=== PATIENT | female | born 1935 | race Caucasian/White ===

== ENCOUNTER → 2021-08-18 09:36 | Outpatient (CLI) | payer MEDICARE, OTHER, SELFPAY ==
--- NOTE | 2021-08-18 | DI.MG.S_ITS ---
BILATERAL DIGITAL SCREENING MAMMOGRAM 3D/2D WITH CAD: 08/18/2021 CLINICAL: Routine screening. Family history of breast cancer. Comparison is made to exams dated: 02/09/2019 mammogram, 02/08/2018 mammogram, and 12/15/2016 mammogram - outside location. The tissue of both breasts is predominantly fatty. Current study was also evaluated with a Computer Aided Detection (CAD) system. No significant masses, calcifications, or other findings are seen in either breast. There has been no significant interval change. IMPRESSION: NEGATIVE There is no mammographic evidence of malignancy. A 1 year screening mammogram is recommended. This exam was interpreted at Station ID: [id number]. NOTE: For mammograms, a report in lay terms will be sent to the patient. Approximately 15% of breast malignancies will not be visualized mammographically. In the management of a palpable breast mass, a negative mammogram must not discourage biopsy of a clinically suspicious lesion. Electronically Signed By: Gen [email or web address]:08/18/2021 11:47:47 letter sent: Normal Exam ACR BI-RADS Category 1: Negative [id number]
== END ==
PROVIDERS: Family Provider Family Medicine; PCP Internal Medicine; Referring Provider Internal Medicine; Visit Provider Internal Medicine
DX: Z12.31 Encounter for screening mammogram for malignant neoplasm of breast (principal); Z80.3 Family history of malignant neoplasm of breast
CPT/HCPCS: 77063; 77067

== ENCOUNTER 2021-12-16 15:26 | Emergency (ER) | payer MEDICARE, OTHER, SELFPAY ==
[2021-12-16 15:31] VITALS: BP 195/88; PULSE 72; RESP 18; TEMP 36.5; O2SAT 100
--- NOTE | 2021-12-16 18:47 | ED.RECABL ---
HPI - Recheck/Abnormal Lab/Rx General Chief Complaint: Recheck/Abnormal Lab/Rx Stated Complaint: abnormal labs this am Time Seen by Provider: 12/16/21 18:15 Source: patient Mode of arrival: Ambulatory History of Present Illness HPI narrative: Patient is an 86-year-old female who received a call from her primary doctor's office informing her that she should come to the emergency department. Patient states she woke up today with symptoms that she thought were consistent with prior urinary tract infections. She had burning with urination. She contacted her doctor's office. She had labs and a urinalysis performed as an outpatient. She did not see her provider. Was not started on antibiotics. Apparently these resulted in she received a call telling her to come to the emergency department because she had blood in her urine. She states that the symptoms that she had this morning that made her concerned about infection have resolved. She is currently asymptomatic. Related Data Allergies Allergy/AdvReac Type Severity Reaction Status Date / Time zolpidem [From AMBIEN] Allergy Severe SUICIDAL Unverified 01/26/18 12:45 diazepam [From VALIUM] Allergy Mild Unverified 01/26/18 12:45 ibuprofen [From MOTRIN] Allergy Mild STOMACH Unverified 01/26/18 12:45 PAIN AFTER HIGH DOSES Review of Systems Constitutional Constitutional: Denies fever(s) Gastrointestinal Gastrointestinal: Denies abdominal pain Genitourinary Genitourinary: Reports system reviewed and no additional complaints, except as documented and Reports as per HPI Integumentary/Breasts Skin/Breast: Reports system reviewed and no additional complaints, except as documented Hematologic/Lymphatic On Anticoagulants: No Patient History Social History lives independently: Yes Exam Initial Vital Signs Initial Vital Signs: Vital Signs Temperature 97.7 F 12/16/21 15:31 Pulse Rate 72 12/16/21 15:31 Respiratory Rate 18 12/16/21 15:31 Blood Pressure 195/88 H 12/16/21 15:31 Pulse Oximetry 100 12/16/21 15:31 Const General: cooperative, comfortable and well developed HENMT Head: normal to inspection and normocephalic Resp Effort & Inspection: normal respiratory effort Cardio Rate: regular rate GI Inspection: normal to inspection Neuro General: patient alert, patient awake and moves all extremities Extrem General: normal to inspection Psych Appearance: grossly normal Course Orders Ordered: ED Orders 12/16/21 18:57 Urine Culture Stat Urine Microscopic Stat Vital Signs Vital signs: Vital Signs - 8 hr 12/16/21 18:59 Blood Pressure 175/80 H MDM - Recheck/Abnormal Lab/Rx Lab Data Labs: Lab Results 12/16/21 Range/Units 18:57 Urine RBC 10-30/hpf H (0-5/HPF) Urine WBC 10-30/hpf H (0-5/HPF) Ur Squamous Epith Cells 0-1 /hpf (0-5/HPF) Ur Transition Epith Cell 0-1/hpf (0-5/HPF) Ur Renal Epithelial Cell 0-1/hpf (0-1/HPF) Urine Bacteria Few (2-10) H (None) Urine Mucus 1+ H (Negative) Ur Culture Indicated? Specimen cultured Micro UA Comment Note Urine Dip Bedside Urine Glucose Negative Bedside Urine Bilirubin - Negative Bedside Urine Ketone - Negative Urine Specific [place] 1.015 Bedside Urine Occult Blood - Negative Bedside Urine pH 6.5 Bedside Urine Protein - Negative Bedside Urine Urobilinogen - Negative Bedside Urine Nitrite - Negative Bedside Urine Leukocytes - Negative Esterase [facility] Narrative Medical decision making narrative: Patient's vital signs are unremarkable. She has a benign exam. Her point of care urinalysis today is unremarkable. We were able to receive labs from earlier today. Had a unremarkable chemistry. Had a urinalysis which showed a cloudy urine with ketones and blood hand moderate leukocyte esterase with white blood cells and red blood cells. This does not correspond with the urinalysis that we have today. Had a discussion with the patient regarding her symptoms. Unsure as to why there is a difference between our urinalysis today in which she had performed earlier although she does admit that her symptoms have resolved. After discussion the plan will be is to hold on any antibiotics for now. A culture was obtained and we will contact her if her culture is positive and we need to start her on antibiotics. She expressed understanding and agreement this plan. Discharge Plan Departure Patient Disposition: Home Clinical Impression: Dysuria Instructions: DI for Dysuria -- Adult Activity Restrictions/Additional Instructions: A urine culture was pending at the time of your discharge and we will contact you if we need to start any antibiotics. Return to the emergency department for any new or worsening symptoms. Referrals: Freda Moody MD [Primary Care Provider] -
[2021-12-16 18:59] VITALS: BP 175/80
[2021-12-16 19:25] LABS: Bacteria Urine Few (2-10); RBC Urine 10-30/HPF (0-5/HPF); Renal Epithelial Cells Urine 0-1/HPF (0-1/HPF); Squamous Epithelial Cell Urine 0-1 /HPF (0-5/HPF); Transitional Epi Cells Urine 0-1/HPF (0-5/HPF); WBC Urine 10-30/HPF (0-5/HPF)
[2021-12-16 19:26] LABS: Mucus Urine 1+ (Negative)
[2021-12-16 19:27] LABS: Culture Indicated Urine Specimen Cultured; Urine Comments NOTE
== END 2021-12-16 18:59 | disposition home or self-care (01) ==
PROVIDERS: Emergency Provider Emergency Medicine; Family Provider Family Medicine; PCP Internal Medicine
DX: R30.0 Dysuria (principal); R31.9 Hematuria, unspecified
CPT/HCPCS: 81003; 81015; 87077; 87086; 87186; 99282